=== PATIENT | male | born 1950 | race Caucasian/White ===

== ENCOUNTER 2016-07-16 09:43 | Inpatient (IN) ==
[2016-07-16] MEDS ORDERED: VANCOMYCIN IV PER PHARMACY MISC SCH (13:15)
[2016-07-16 13:57] LABS: MANUAL DIFF NEEDED? NO
[2016-07-16 14:01] LABS: BASO% 0.7 % (0.0-0.8); EOS# 0.13 X1000 (0.0-0.7); EOS% 2.2 % (0.0-10.0); HEMATOCRIT 39.3 % (42.0-52.0); HEMOGLOBIN 13.3 g/dL (14.0-18.0); LYMPH# 1.21 X1000 (1.2-3.4); LYMPH% 20.9 % (20.5-51.1); MCH 31.1 PG (27-31); MCHC 33.8 g/dL (33-37); MONO# 0.43 X1000 (0.11-0.59); MONO% 7.4 % (1.7-9.3); MPV 11.4 FL (7.4-10.4); NEUT% 68.8 % (42.2-75.2); PLT 132 X1000 (130-400); RBC 4.27 XMIL (4.7-6.1)
[2016-07-16 14:20] LABS: AGAP 12; BUN 15 mg/dL (8-22); CALCIUM 9.1 mg/dL (8.8-10.2); CHLORIDE 97 mmol/L (98-107); COSMO 269; SODIUM 133 mmol/L (136-145); TCO2 24 mmol/L (25-35)
[2016-07-16 15:07] LABS: SED RATE 58 mm/hr (0-15)
[2016-07-16] MEDS: VANCOMYCIN 1.75 GM in NS 250 ML IV SCH (16:38)
[2016-07-16] MEDS ORDERED: FLEXERIL PO PRN (18:46)
[2016-07-16] MEDS: ZOCOR PO SCH (20:29)
[2016-07-16] MEDS: GLUCOPHAGE PO SCH (20:29)
[2016-07-16] MEDS: PROTONIX IV SCH (20:30)
[2016-07-16] MEDS: NORVASC PO SCH (20:30)
[2016-07-16] MEDS: SODIUM CHLORIDE 0.9% INJ SCH (20:30)
[2016-07-16] MEDS: LOVENOX SUBQ SCH ×3 (20:30→20:39)
[2016-07-16] MEDS: NS 1,000 ML IV SCH (20:30)
[2016-07-16] MEDS: HUMALOG SUBQ SCH (20:39)
--- NOTE | 2016-07-16 21:03 | HISTORY AND PHYSICAL ---
CHIEF COMPLAINT: History of fall, sustained injury to the left leg. HISTORY OF PRESENT ILLNESS: The patient was seen by Dr. Giron. He developed extensive redness, cellulitis and fluid collection just below the medial left knee. He had bilateral knee replacement with prosthesis by Dr. Hernandez. He also had impetigos lesion on the fluid collection, worried about impending abscess. He was given Bactrim and doxycycline and fails to improve. The redness was going above the knee and extremely swollen and tender. As a result, he has been hospitalized with cellulitis with impending abscess on the medial side of the left knee given the context of prosthetic joints. As a result, he was hospitalized with IV vancomycin and is allergic to penicillin. Dr. Giron was consulted also. He is also diabetic with hyponatremia and needs IV fluids to control the sugar. For all these reasons, he needs to be in acute care hospital setting. PAST MEDICAL HISTORY: Kidney stones. Metabolic syndrome, hypertension, fatty liver, hyperlipidemia, type 2 diabetes, osteoarthritis, thrombocytopenia. PAST SURGICAL HISTORY: Bilateral knee arthroplasty. Bilateral cataract surgery. MEDICINES: Aspirin 80 mg daily, Flexeril 10 once daily, metformin 500 p.o. b.i.d., lisinopril 40 mg daily, Norvasc 10 mg daily, Zocor 40 daily. ALLERGIES: Penicillin. SOCIAL HISTORY: Lives in [place] and working in [email or web address]. No tobacco. No alcohol abuse. . One daughter. FAMILY HISTORY: Father of heart failure at 60. Mom is 88 years old, CHF. Tetanus 2009. Last prostate and PSA October 2015. Colonoscopy [address] Arvizu. REVIEW OF SYSTEMS: HEENT: No headache. No dizziness. No earache. No sore throat. Neck: No goiter. No lymphadenopathy. No bruit. Cardiopulmonary: No chest pain, shortness of breath, PND, orthopnea. GI: No nausea, vomiting, abdominal pain. : No history of hesitancy, frequency. Left leg swelling, redness with a fluid collection just below the knee. Neurologic: No focal symptoms or weakness or seizures. PHYSICAL EXAMINATION: VITAL SIGNS: Afebrile, 6 feet 299 pounds, hemodynamics were stable. HEENT: Within normal limits. NECK: Supple. No lymphadenopathy. No goiter. JVD is normal. CHEST: Bilateral air entry. No rales, no wheezing. HEART: Sounds are regular. ABDOMEN: Belly is soft, nontender. Good bowel sounds. No masses palpable. No signs of peritonitis. RECTAL: Deferred. EXTREMITIES: Left leg is swollen obviously with diffuse redness starting from the ankle all the way up with fluid collection, impending abscess on the medial of left knee. No obvious focal deficits. INVESTIGATIONS: CBC: White cell count 5.7, hematocrit 39, platelets 132,000. Sodium 133. Potassium 5. BUN and creatinine normal. Glucose 139. ESR 58. ASSESSMENT AND PLAN: 1. A 66-year-old white gentleman with history of diabetes, obesity, bilateral knee joint replacement. Admitted to the hospital with cellulitis, not able to improve with outpatient medical management. Allergic to penicillin. Plan is IV vancomycin. 2. Dehydration, hyponatremia. IV fluids. 3. Impending abscess. Fluid collection. Dr. Giron consult for possible incision and drainage. DVT prophylaxis with Lovenox. Gastrointestinal prophylaxis with IV Protonix. 4. Probiotics. 5. Type 2 diabetes on metformin. Check the A1c and follow up on sliding scale with insulin coverage. 6. Hyperlipidemia, on Zocor. Discussed with the patient. We will follow up. cc: Kirby Gao MD
[2016-07-17] MEDS: VANCOMYCIN 1.75 GM in NS 250 ML IV SCH ×2 (04:49→15:39)
--- NOTE | 2016-07-17 05:16 | EKG Report ---
Test Performed on : 07/16/2016 10:24:03 PM Test Reason : tingling hands/face Blood Pressure : / mmHG Vent. Rate : 072 BPM Atrial Rate : 072 BPM P-R Int : 216 ms QRS Dur : 120 ms QT Int : 434 ms P-R-T Axes : 053 030 041 degrees QTc Int : 475 ms Sinus rhythm. with 1st degree AV block. Nonspecific intraventricular conduction delay Borderline ECG When compared with ECG of 27-SEP-2010 10:46, MS interval has increased QRS duration has increased QT has lengthened Confirmed by Nate SANCHEZ, Yahir Parnell ([id number]) on 07/20/2016 12:37:41 PM
[2016-07-17] MEDS: HUMALOG SUBQ SCH ×4 (06:04→21:16)
[2016-07-17 06:42] LABS: MANUAL DIFF NEEDED? NO
[2016-07-17 06:55] LABS: BASO% 0.4 % (0.0-0.8); EOS# 0.18 X1000 (0.0-0.7); EOS% 3.7 % (0.0-10.0); HEMATOCRIT 39.8 % (42.0-52.0); HEMOGLOBIN 13.4 g/dL (14.0-18.0); LYMPH# 1.39 X1000 (1.2-3.4); LYMPH% 28.5 % (20.5-51.1); MCH 31.1 PG (27-31); MCHC 33.7 g/dL (33-37); MCV 92.3 FL (81-99); MONO# 0.42 X1000 (0.11-0.59); MONO% 8.6 % (1.7-9.3); MPV 11.5 FL (7.4-10.4); NEUT% 58.8 % (42.2-75.2); PLT 125 X1000 (130-400); RBC 4.31 XMIL (4.7-6.1)
[2016-07-17 07:11] LABS: AGAP 16; BUN 12 mg/dL (8-22); CALCIUM 8.7 mg/dL (8.8-10.2); CHLORIDE 100 mmol/L (98-107); COSMO 278; POTASSIUM 4.5 mmol/L (3.5-5.1); SODIUM 139 mmol/L (136-145); TCO2 23 mmol/L (25-35)
[2016-07-17 07:15] LABS: HEMOGLOBIN A1C 7.5 % (4.8-6.0)
--- NOTE | 2016-07-17 08:57 | PROGRESS NOTE ---
DATE: 07/17/2016 SUBJECTIVE: The patient was seen by Dr. Montoya. He is developing slight redness and numbness of the face with the IV vancomycin. Now, he has developed soft fluctuant swelling medial to the left knee. No fever. The rest of review of systems is normal. OBJECTIVE: Vital Signs: Afebrile. Vitals are stable. I/O -435. HEENT: Within normal limits. Neck: Supple. No lymphadenopathy. Chest: Clear. Heart: Sounds are regular. Abdomen: Belly is soft, nontender. Good bowel sounds. Extremities: Left knee with soft fluctuant impending abscess on the medial below left knee. Decreased redness. INVESTIGATIONS: White cell count 4.8, hematocrit 39, platelets 125,000. SMA 7: Sodium 139, potassium 4.5, chloride 100, BUN 12, creatinine 0.8, glucose 105, A1c 7.5. ASSESSMENT AND PLAN: 1. Left leg cellulitis is slowly improving with IV vancomycin. 2. Left medial knee impending abscess. Incision and drainage by Dr. Montoya today. 3. Diabetes. Well controlled, A1c 7.5. 4. Thrombocytopenia, stable. 5. Red man syndrome with IV vancomycin. We will discuss with nurses to infused very slowly and give Benadryl prior to the infusion. Continue present medical therapy. LEVEL OF DOCUMENTATION: Twenty-five minutes. cc: Kirby Gao MD
[2016-07-17] MEDS ORDERED: CLINORIL PO SCH (09:00)
[2016-07-17] MEDS: GLUCOPHAGE PO SCH ×2 (09:16→21:15)
[2016-07-17] MEDS: PRINIVIL PO SCH (09:16)
[2016-07-17] MEDS: CULTURELLE PO SCH (09:16)
[2016-07-17] MEDS: NS 1,000 ML IV SCH ×2 (11:19→21:16)
[2016-07-17] MEDS ORDERED: NEOSPORIN G.U. IRRIGANT ONE ×2 (17:20→18:07)
[2016-07-17] MEDS ORDERED: FENTANYL ONE (18:17)
[2016-07-17] MEDS ORDERED: DIPRIVAN 1% ONE (18:18)
[2016-07-17] MEDS ORDERED: MORPHINE IV PRN (19:00)
[2016-07-17] MEDS: OXY IR PO PRN (20:15)
--- NOTE | 2016-07-17 20:24 | OPERATIVE NOTE ---
PROCEDURE DATE: 07/17/2016 PREOPERATIVE DIAGNOSIS: Infected hematoma/abscess left knee with cellulitis. POSTOPERATIVE DIAGNOSIS: Infected hematoma/abscess left knee with cellulitis. PROCEDURE: Incision and drainage abscess left knee. SURGEON: Erick Montoya MD. ANESTHESIA: General. IV FLUIDS: 700 mL lactated Ringer's. ESTIMATED BLOOD LOSS: 5 mL. TOURNIQUET TIME: 27 minutes at 350 mmHg. COMPLICATIONS: None. INDICATION: The patient is a pleasant, 66-year-old male who is status post injury to his knee approximately a week and half or so ago. He presented to the office. Underwent evaluation last week and underwent evaluation by Dr. Giron and was placed on p.o. Bactrim and doxycycline and continued with symptoms. He was admitted to the hospital per Dr. Gao and Orthopedic consultation was requested. Given the patient's continued swelling and failure to resolve with p.o. antibiotics, recommendation to proceed with incision and drainage was offered. Risks, benefits of surgery were explained, including the risks of anesthesia, , bleeding, infection, failure to relieve pain, postoperative stiffness, nerve injury, blood clots and other imponderables. All questions were answered and the patient and family wished to proceed with surgery. DETAILS OF OPERATION: The patient was taken to the operating room and underwent general anesthesia. After adequate anesthesia was obtained, patient's left lower extremity was subsequently prepped and draped in usual sterile fashion. Attention was turned to the superolateral aspect of the knee well away from the medial proximal tibia/knee infected hematoma and under sterile technique, an aspiration of the knee was performed. Attention then turned to the medial aspect of the knee. The knee was elevated and the tourniquet was inflated to 350 mmHg. A few drops of blood-tinged serous fluid. We will obtain cultures. After this had been performed, attention then turned to the infected hematoma/abscess along the medial aspect of the knee. A longitudinal incision made along the firm mass. There was some purulent fluid expressed. Cultures were obtained of this as well. The debridement and excision of the necrotic tissue was conducted. After adequate elevation circumferentially of the wound, there appeared to be no further tracking. There is no evidence of tracking to the joint. After excising and debriding the necrotic tissue, copious irrigation was performed with 6000 mL of antibiotic pulsatile lavage. After this had been performed, the wound was packed with iodoform and loosely closed with 2-0 Prolene leaving the iodoform exiting the central portion of the incision. Sterile 4 x 4, ABD pad, [place] and a Webril, followed by Hemant wrap was applied to the right lower extremity. The tourniquet was deflated after 26 minutes at 350 mmHg. The patient tolerated the procedure well and there were no complications. He was transferred to the recovery room in stable condition. cc: MD Kirby Ackerman MD MTDD
[2016-07-17] MEDS: NORVASC PO SCH (21:15)
[2016-07-17] MEDS: LOVENOX SUBQ SCH ×2 (21:16→21:19)
[2016-07-17] MEDS: ZOCOR PO SCH (21:16)
[2016-07-17] MEDS: PROTONIX IV SCH (21:16)
[2016-07-17] MEDS: SODIUM CHLORIDE 0.9% INJ SCH (21:16)
[2016-07-18] MEDS: OXY IR PO PRN ×2 (00:17→04:11)
[2016-07-18] MEDS: NS 1,000 ML IV SCH ×2 (04:02→10:06)
[2016-07-18] MEDS: VANCOMYCIN 1.75 GM in NS 250 ML IV SCH (04:04)
[2016-07-18] MEDS: HUMALOG SUBQ SCH ×3 (06:16→16:33)
[2016-07-18] MEDS ORDERED: ROBINUL ONE (08:20)
[2016-07-18] MEDS ORDERED: XYLOCAINE-MPF 2% ONE (08:20)
[2016-07-18] MEDS ORDERED: LR 1,000 ML ONE (08:20)
[2016-07-18] MEDS ORDERED: ZOFRAN ONE (08:20)
[2016-07-18] MEDS ORDERED: BENADRYL PO PRN (08:22)
[2016-07-18] MEDS: NORCO-5 PO PRN ×3 (08:29→21:34)
--- NOTE | 2016-07-18 09:33 | PROGRESS NOTE ---
DATE: 07/18/2016 SUBJECTIVE: Interval history was reviewed. Patient is refusing Lovenox shots. Complains of itching from the morphine and vancomycin. Dr. Montoya consulted and procedure is appreciated. The findings were noted. Incision and drainage done. Drained quite a bit of hematoma and abscess. The wound was packed with iodoform gauze pack. The whole leg was wrapped up with Hemant bandage. Denies of any chest pain, shortness of breath other than itching. OBJECTIVE: Vital Signs: On examination, he is afebrile. Vitals are stable. HEENT: Within normal limits. He had a sebaceous cyst below the suprasternal notch. Chest: Clear. Heart: Sounds are regular. Abdomen: Belly is soft, nontender. Good bowel sounds. Extremities: Left leg is wrapped up with an Hemant bandage. Wound cultures are pending. The A1c 7.5. Blood cultures were negative. ASSESSMENT AND PLAN: 1. Left knee abscess, incision and drainage. Continue local wound care. Follow up on culture and sensitivity. In the meantime, IV vancomycin. 2. Diabetes is controlled. 3. Deep vein thrombosis prophylaxis. Platelets were normal. Discontinue Lovenox. Change to Xarelto 10 mg daily. Keep him out of the bed. Continue IV antibiotics for the weekend. Hopefully he will be discharged home on Thursday. LEVEL OF DOCUMENTATION: Twenty-five minutes. cc: Kirby Gao MD
[2016-07-18] MEDS: GLUCOPHAGE PO SCH ×2 (10:06→21:34)
[2016-07-18] MEDS: PRINIVIL PO SCH (10:06)
[2016-07-18] MEDS: CULTURELLE PO SCH (10:06)
--- NOTE | 2016-07-18 17:19 | PROGRESS NOTE ---
DATE: 07/18/2016 SUBJECTIVE: The patient is a pleasant 66-year-old male who is 1 day status post I and D for abscess/infected hematoma of the left knee. He is currently resting comfortably. OBJECTIVE: On physical examination, the patient's dressing was removed. His wound looks good. There is small bloody drainage. Some of the packing was removed. It was redressed. His calf is soft. His intraoperative Gram stain revealed gram-positive cocci. LABORATORY DATA: His cultures are pending. IMPRESSION: Postoperative day #1 status post irrigation and debridement for infected hematoma. PLAN: At this point the patient will be maintained on IV vancomycin. We will await his culture results. All questions were answered. We will allow him to be weightbearing as tolerated on left lower extremity. cc: MD Kirby Ackerman MD
[2016-07-18] MEDS: VANCOMYCIN 2,000 MG in NS 500 ML IV SCH (17:21)
[2016-07-18] MEDS: PROTONIX IV SCH (21:34)
[2016-07-18] MEDS: ZOCOR PO SCH (21:34)
[2016-07-18] MEDS: SODIUM CHLORIDE 0.9% INJ SCH (21:34)
[2016-07-18] MEDS: NORVASC PO SCH (21:35)
[2016-07-19] MEDS: HUMALOG SUBQ SCH ×5 (02:29→23:55)
[2016-07-19] MEDS: VANCOMYCIN 2,000 MG in NS 500 ML IV SCH ×2 (06:17→16:59)
[2016-07-19] MEDS: NORCO-5 PO PRN ×2 (06:18→19:15)
[2016-07-19] MEDS: XARELTO PO SCH (06:18)
[2016-07-19] MEDS: PRINIVIL PO SCH (08:55)
[2016-07-19] MEDS: GLUCOPHAGE PO SCH ×2 (08:56→20:28)
[2016-07-19] MEDS: CULTURELLE PO SCH (08:56)
--- NOTE | 2016-07-19 11:22 | PROGRESS NOTE ---
DATE: 07/19/2016 Mr. Haddad is receiving postop care after I and D of infected hematoma. He is afebrile with stable vital signs. There is some drainage on the bandage but, overall, no active drainage or increasing drainage. He has good range of motion of the knee. He states he is feeling better. We will continue IV antibiotics. We will consider changing the bandage tomorrow or Thursday. cc: MD Kirby Glynn MD
--- NOTE | 2016-07-19 13:46 | PROGRESS NOTE ---
DATE: 07/19/2016 SUBJECTIVE: Mr. Haddad has severe cellulitis in the left knee area. He has Gram-positive cocci isolated in the left knee and he is feeling better. He is on IV vancomycin. Overall condition is improving. He has diabetes and he has insulin coverage. We will continue with the current management. His vital signs are stable. -4 cc: MD Kirby Lake MD
[2016-07-19] MEDS: NORVASC PO SCH (20:28)
[2016-07-19] MEDS: ZOCOR PO SCH (20:28)
[2016-07-19] MEDS: SODIUM CHLORIDE 0.9% INJ SCH (20:28)
[2016-07-19] MEDS: PROTONIX IV SCH (20:28)
[2016-07-20] MEDS: VANCOMYCIN 2,000 MG in NS 500 ML IV SCH ×2 (04:44→17:35)
[2016-07-20] MEDS: XARELTO PO SCH (05:40)
[2016-07-20] MEDS: HUMALOG SUBQ SCH ×4 (06:40→21:27)
[2016-07-20] MEDS: PRINIVIL PO SCH (09:30)
[2016-07-20] MEDS: CULTURELLE PO SCH (09:30)
[2016-07-20] MEDS: GLUCOPHAGE PO SCH ×2 (09:30→21:26)
--- NOTE | 2016-07-20 11:49 | PROGRESS NOTE ---
DATE: 07/20/2016 SUBJECTIVE: Mr. Haddad was seen for followup care status post drainage of infected hematoma. He remains afebrile with stable vital signs. He reports decreasing pain and tenderness. States the leg is feeling better. OBJECTIVE: Examination reveals the incision to be clean and dry. ASSESSMENT AND PLAN: We have changed the bandage today. He will continue with IV antibiotics. Dr. Montoya will be back to see him tomorrow. cc: MD Kirby Glynn MD
[2016-07-20] MEDS: NORCO-5 PO PRN (13:51)
--- NOTE | 2016-07-20 17:18 | PROGRESS NOTE ---
DATE: 07/20/2016 The patient says he needs a dressing done. He is seen by Dr. Sotelo. He has a moderate size Vancomycin. His IV vancomycin was given. He has some cellulitis on the leg also. -8 cc: MD Kirby Lake MD
[2016-07-20] MEDS: NORVASC PO SCH (21:26)
[2016-07-20] MEDS: PROTONIX IV SCH (21:26)
[2016-07-20] MEDS: SODIUM CHLORIDE 0.9% INJ SCH (21:26)
[2016-07-20] MEDS: ZOCOR PO SCH (21:26)
[2016-07-21] MEDS: VANCOMYCIN 2,000 MG in NS 500 ML IV SCH ×2 (05:11→17:18)
[2016-07-21] MEDS: XARELTO PO SCH (05:44)
[2016-07-21] MEDS: HUMALOG SUBQ SCH ×4 (06:35→21:15)
--- NOTE | 2016-07-21 06:44 | PROGRESS NOTE ---
DATE: 07/21/2016 SUBJECTIVE: Patient pleasant 66-year-old male, who is four days status post I D for infected hematoma of his left knee. His intraoperative cultures were negative. He has been maintained on IV vancomycin and he is currently resting comfortably. Patient has been afebrile and his pain has improved. OBJECTIVE: On physical exam, patient's left lower extremity dressing was changed. His packing was removed. Patient did have expected drainage from the wound. Some mild erythema lower extremity. His compartments were soft. His culture revealed MRSA. IMPRESSION: Postoperative day #4 status post I D infected hematoma left knee. PLAN: At this point, the patient will continue with a daily dressing change. He is stable from an orthopedic standpoint. The culture revealed sensitivity to doxycycline and will plan on placing him on this at the time of discharge. We will await Dr. Gao's recommendation. cc: MD Kirby Ackerman MD [facility]
[2016-07-21] MEDS: NORCO-5 PO PRN ×2 (07:12→14:56)
[2016-07-21] MEDS: GLUCOPHAGE PO SCH ×2 (10:06→21:15)
[2016-07-21] MEDS: PRINIVIL PO SCH (10:06)
[2016-07-21] MEDS: CULTURELLE PO SCH (10:07)
[2016-07-21] MEDS: MYLICON PO PRN (18:21)
--- NOTE | 2016-07-21 20:23 | PROGRESS NOTE ---
DATE: 07/21/2016 Interval history was reviewed. LEVEL OF DOCUMENTATION: 35 minutes. SUBJECTIVE: Detailed events were noted over the weekend. Apparently, wound pack was removed. Quit a bit of swelling, redness is not going down. Dr. Montoya removed the pack. Wound cultures grew MRSA. It has been sensitive to Bactrim and doxycycline. He is on IV vancomycin. REVIEW OF SYSTEMS: General: No side effects on vancomycin. Cardiopulmonary: No chest pain, shortness of breath, PND, orthopnea. GI: No nausea, vomiting, abdominal pain. Right leg: Is still swollen and painful. PAST MEDICAL HISTORY/MEDICINES: reviewed. OBJECTIVE: Vital Signs: Afebrile, stable, pulse oximetry 97%. HEENT: Within normal limits. Neck: Supple. No lymphadenopathy. No goiter. Chest: Clear to auscultation. Heart: Sounds are regular. Abdomen: Belly is soft, nontender. Good bowel sounds. No masses palpable. Extremities: Left leg, wound was examined twice. I did examine in the morning with wrap, again in the afternoon. He had a big incision on the medial side of the left knee with 6 stitches placed. The pack was removed. Still draining serous fluid. Fluid collection is less and no fluctuations noted. Still red and tender. Quite a bit of swelling in the left leg. Neurologic: Nonfocal. DIAGNOSTICS: Wound cultures MRSA. Blood cultures were negative. No labs were done. Blood sugars running within normal limits. ASSESSMENT AND PLAN: 1. Left knee infected hematoma due to methicillin-resistant Staphylococcus aureus. Continue IV vancomycin. 2. Still cellulitis and redness. Elevation. Venous Dopplers. He is on Xarelto. 3. Type 2 diabetes. Well controlled. 4. Hypertension. Lisinopril and amlodipine. 5. Thrombocytopenia. Stable. PLAN OF CARE: Repeat the complete blood count in the morning. Venous Dopplers. Discussed with the Dr. Montoya on the telephone. Since he has bilateral knee replacements, it is prudent to stay a few more days on IV antibiotics. Options are discussed with the patient, home IV antibiotics versus p.o. antibiotics. We will continue the wound dressing twice a day. Patient did examine in the morning as well as in the afternoon. Still swelling is slowly improving. Continue elevation. LEVEL OF DOCUMENTATION: 35 minutes. cc: Kirby Gao MD
[2016-07-21] MEDS ORDERED: PRILOSEC PO SCH (21:00)
[2016-07-21] MEDS: NORVASC PO SCH (21:15)
[2016-07-21] MEDS: ZOCOR PO SCH (21:15)
[2016-07-22] MEDS: VANCOMYCIN 2,000 MG in NS 500 ML IV SCH (04:54)
[2016-07-22] MEDS: XARELTO PO SCH (06:00)
[2016-07-22] MEDS: HUMALOG SUBQ SCH (06:01)
[2016-07-22 06:28] LABS: MANUAL DIFF NEEDED? NO
[2016-07-22 06:39] LABS: BASO% 0.5 % (0.0-0.8); EOS# 0.12 X1000 (0.0-0.7); EOS% 3.1 % (0.0-10.0); HEMATOCRIT 38.8 % (42.0-52.0); HEMOGLOBIN 13.1 g/dL (14.0-18.0); LYMPH# 0.85 X1000 (1.2-3.4); LYMPH% 21.9 % (20.5-51.1); MCH 31.3 PG (27-31); MCHC 33.8 g/dL (33-37); MCV 92.6 FL (81-99); MONO% 10.3 % (1.7-9.3); MPV 11.7 FL (7.4-10.4); NEUT% 64.2 % (42.2-75.2); PLT 114 X1000 (130-400); RBC 4.19 XMIL (4.7-6.1)
[2016-07-22 07:00] LABS: AGAP 14; BUN 4 mg/dL (8-22); CALCIUM 8.3 mg/dL (8.8-10.2); CHLORIDE 98 mmol/L (98-107); COSMO 273; POTASSIUM 3.6 mmol/L (3.5-5.1); SODIUM 138 mmol/L (136-145); TCO2 26 mmol/L (25-35)
[2016-07-22 07:37] VITALS: BP 122/55
[2016-07-22] MEDS: GLUCOPHAGE PO SCH (07:44)
[2016-07-22] MEDS: CULTURELLE PO SCH (07:44)
[2016-07-22] MEDS: PRINIVIL PO SCH (07:44)
[2016-07-22] MEDS: MYLICON PO PRN (07:48)
[2016-07-22] MEDS ORDERED: HYDROGEN PEROXIDE SOLUTION TOP SCH (09:00)
--- NOTE | 2016-07-22 18:20 | DISCHARGE SUMMARY ---
ADMISSION DATE: 07/16/2016 DISCHARGE DATE: 07/22/2016 DISCHARGING DIAGNOSIS: Left leg cellulitis with infected hematoma on the medial side of left knee. SECONDARY DIAGNOSES: 1. Chronic idiopathic thrombocytopenic purpura, stable. 2. History of kidney stones. 3. Type 2 diabetes. 4. Metabolic syndrome. 5. Hypertension. 6. Fatty liver. 7. Osteoarthritis. 8. Bilateral knee arthroplasty. 9. Sebaceous cyst over the sternum. CONSULTANTS: Dr. Montoya. PROCEDURES: I and D on the left medial knee, drained copious pus and blood, followed by stitches and grew MRSA. BRIEF HISTORY: Please see the H and P that was done on 07/16/2016. In brief, he is a 66-year- old, white gentleman who was admitted to the hospital after failure of outpatient treatment after he fell, sustaining injury to the left leg. It was diffusely red and he developed infected hematoma on the medial left knee. HOSPITAL COURSE: 1. Venous Doppler was negative for acute DVT. 2. He was started on IV vancomycin, briefly developed red man syndrome. 3. Follow up, there were no signs of sepsis. 4. Ortho consult was obtained. Performed I and D. Drained copious infected pus and the cultures grew MRSA, sensitive to vancomycin, doxycycline and Bactrim. Redness slowly improved. The wound pack was taken out. Patient's family was given instructions with a saline gauze along with local antibiotic cream. The patient was less edematous, less redness. He was also given IV fluids for hyponatremia. LABORATORIES: CBC: White cell count 3.8, hematocrit 38, platelets 114. SMA-7: Sodium 138, potassium 3.6, chloride 98, BUN 14, creatinine 0.7, glucose 112. A1c was 7.5, and blood cultures were negative. Wound cultures MRSA. DISCHARGE INSTRUCTIONS: Local wound care. Follow up with Dr. Montoya on , as well as in my office next week. Norvasc 10 mg daily, metformin 500 p.o. b.i.d., Zocor 40 daily, lisinopril 40 mg daily, sulindac 150 daily, Flexeril 5 mg as needed, doxycycline 100 p.o. b.i.d. for 2 weeks and Bactroban ointment as directed. cc: MD Erick Saavedra MD
--- NOTE | 2016-07-23 20:09 | Extremity Venous Study ---
PROCEDURE NAME: Venous U/S Left Leg - 07/21/2016 TEST: Left lower extremity venous duplex study. REFERRING PHYSICIAN: Chang Gao MD READING PHYSICIAN: Jakob Quintero MD NETWORK OPERATIONS LEAD: Paul. INDICATION: Left leg pain and swelling. FINDINGS: The deep and superficial veins of the left lower extremity were imaged throughout their course. They are compressible and patent and without thrombus. Some of the views were limited secondary to edema and dressings on the leg. INTERPRETATION: No evidence of deep or superficial venous thrombosis in the left lower extremity in this limited study. cc: MD Kirby Bennett MD
== END 2016-07-22 10:15 | disposition home or self-care (01) ==
LOC: DIRADM 09:43 → 3N 10:45
PROVIDERS: ADMIT Internal Medicine; ATTEND Internal Medicine

== ENCOUNTER 2018-11-16 13:19 | Inpatient (IN) ==
[2018-11-16] MEDS ORDERED: ZOFRAN IV PRN (14:11)
[2018-11-16] MEDS ORDERED: SODIUM CHLORIDE 0.9% INJ SCH (14:15)
[2018-11-16] MEDS: ZOSYN 3.375 GM in NS 50 ML IV SCH ×3 (18:00→23:37)
[2018-11-16] MEDS: NS 1,000 ML IV SCH (18:01)
[2018-11-16] MEDS: HUMULIN R SUBQ SCH ×2 (18:25→20:33)
[2018-11-16] MEDS: PROTONIX IV SCH (18:27)
[2018-11-16 19:04] LABS: URINE SOURCE CLEAN CATCH
[2018-11-16 19:14] LABS: BILIRUBIN URINE NEGATIVE (NEGATIVE); BLOOD URINE MODERATE (NEGATIVE); COLOR YELLOW; GLUCOSE URINE NEGATIVE (NEGATIVE); KETONE URINE TRACE mg/dL (NEGATIVE); LEUKOCYTES URINE TRACE (NEGATIVE); NITRITE URINE NEGATIVE (NEGATIVE); PROTEIN URINE 30 mg/dL (NEGATIVE); SP GRAVITY URINE 1.027; TURBIDITY URINE CLEAR (CLEAR); UROBILINOGEN URINE NORMAL (NORMAL)
[2018-11-16 19:17] LABS: UR EPITHELIAL CELLS <10 /HPF (<10); URINE BACTERIA NEGATIVE /HPF; URINE RBC <10 /HPF (<10); URINE WBC <10 /HPF (<10)
[2018-11-16 19:37] LABS: URINE CRYSTALS CA OXALATE PRESENT
[2018-11-16 19:48] LABS: BASO# 0.03 X1000 (0.0-0.2); BASO% 0.2 % (0.0-0.8); HEMOGLOBIN 13.7 g/dL (14.0-18.0); IMM GRAN# 0.18 X1000 (0.0-0.04); IMM GRAN% 1.5 % (0.0-0.5); LYMPH# 0.93 X1000 (1.2-3.4); LYMPH% 7.6 % (20.5-51.1); MCH 29.8 PG (27-31); MCHC 33.4 g/dL (33-37); MCV 89.1 FL (81-99); MONO# 0.58 X1000 (0.11-0.59); MONO% 4.7 % (1.7-9.3); NEUT# 10.51 X1000 (1.4-6.5); PLT 69 X1000 (130-400); RDW 13.4 % (11.5-14.5); WBC 12.23 X1000 (4.8-10.8)
[2018-11-16 19:51] LABS: INR 2.03; PROTIME 23.5 Seconds (11.0-16.0)
[2018-11-16 19:52] LABS: PTT 43.3 Seconds (22.3-41.8)
[2018-11-16 19:57] LABS: AGAP 14; ALBUMIN 3.4 g/dL (3.5-5.0); ALKALINE PHOSPHATASE 47 U/L (32-122); BUN 29 mg/dL (8-22); CALCIUM 8.3 mg/dL (8.8-10.2); CHLORIDE 98 mmol/L (98-107); COSMO 276; CREATININE 1.1 mg/dL (0.7-1.2); ESTIMATED GFR > 60; GLUCOSE 102 mg/dL (70-104); GOT 53 U/L (10-34); GPT 29 U/L (10-44); POTASSIUM 4.1 mmol/L (3.5-5.1); SODIUM 135 mmol/L (136-145); TCO2 23 mmol/L (25-35); TOTAL BILIRUBIN 1.97 mg/dL (0.20-1.00); TOTAL PROTEIN 6.9 g/dL (6.3-8.3)
[2018-11-16 19:59] LABS: CK PROFILE 311 U/L (24-204)
[2018-11-16 20:17] LABS: BANDS 8 % (0-1); LYMPHS 6 % (21-51); MONO 6 % (1-9); SEGS 80 % (42-75)
[2018-11-16 20:22] LABS: CK INDEX 0.6 (0.0-2.5); CK-MB 1.93 ng/mL (0.0-5.0)
[2018-11-17 05:25] LABS: BASO# 0.02 X1000 (0.0-0.2); BASO% 0.2 % (0.0-0.8); HEMATOCRIT 40.3 % (42.0-52.0); HEMOGLOBIN 13.5 g/dL (14.0-18.0); IMM GRAN# 0.07 X1000 (0.0-0.04); IMM GRAN% 0.6 % (0.0-0.5); LYMPH# 0.91 X1000 (1.2-3.4); LYMPH% 8.3 % (20.5-51.1); MCHC 33.5 g/dL (33-37); MCV 89.6 FL (81-99); MONO# 0.53 X1000 (0.11-0.59); MONO% 4.8 % (1.7-9.3); MPV 12.5 FL (7.4-10.4); NEUT# 9.43 X1000 (1.4-6.5); NEUT% 86.1 % (42.2-75.2); PLT 65 X1000 (130-400); RDW 13.3 % (11.5-14.5); WBC 10.96 X1000 (4.8-10.8)
[2018-11-17] MEDS: ZOSYN 3.375 GM in NS 50 ML IV SCH ×4 (05:38→20:05)
[2018-11-17 05:41] LABS: HEMOGLOBIN A1C 7.6 % (4.8-6.0)
[2018-11-17 05:50] LABS: AGAP 13; BUN 24 mg/dL (8-22); CALCIUM 8.5 mg/dL (8.8-10.2); CHLORIDE 98 mmol/L (98-107); COSMO 274; CREATININE 0.9 mg/dL (0.7-1.2); ESTIMATED GFR > 60; GLUCOSE 102 mg/dL (70-104); POTASSIUM 4.1 mmol/L (3.5-5.1); SODIUM 135 mmol/L (136-145); TCO2 24 mmol/L (25-35)
[2018-11-17 05:52] LABS: BANDS 2 % (0-1); MONO 6 % (1-9); SEGS 92 % (42-75)
[2018-11-17] MEDS: HUMULIN R SUBQ SCH ×4 (06:00→20:49)
[2018-11-17] MEDS: NS 1,000 ML IV SCH ×2 (06:17→22:43)
[2018-11-17] MEDS: LOVENOX SUBQ SCH (08:58)
[2018-11-17] MEDS: PROTONIX IV SCH (13:25)
[2018-11-18] MEDS: ZOSYN 3.375 GM in NS 50 ML IV SCH ×4 (01:41→20:01)
[2018-11-18 05:31] LABS: BASO# 0.05 X1000 (0.0-0.2); BASO% 0.6 % (0.0-0.8); EOS# 0.04 X1000 (0.0-0.7); EOS% 0.4 % (0.0-10.0); HEMATOCRIT 39.1 % (42.0-52.0); HEMOGLOBIN 12.9 g/dL (14.0-18.0); IMM GRAN# 0.05 X1000 (0.0-0.04); IMM GRAN% 0.6 % (0.0-0.5); LYMPH# 1.23 X1000 (1.2-3.4); LYMPH% 13.7 % (20.5-51.1); MCH 29.5 PG (27-31); MCV 89.3 FL (81-99); MONO# 0.86 X1000 (0.11-0.59); MONO% 9.6 % (1.7-9.3); MPV 12.5 FL (7.4-10.4); NEUT# 6.73 X1000 (1.4-6.5); NEUT% 75.1 % (42.2-75.2); PLT 70 X1000 (130-400); RBC 4.38 XMIL (4.7-6.1); RDW 13.1 % (11.5-14.5); WBC 8.96 X1000 (4.8-10.8)
[2018-11-18 05:46] LABS: AGAP 11; BUN 15 mg/dL (8-22); CALCIUM 8.1 mg/dL (8.8-10.2); CHLORIDE 102 mmol/L (98-107); COSMO 276; CREATININE 0.9 mg/dL (0.7-1.2); ESTIMATED GFR > 60; GLUCOSE 97 mg/dL (70-104); POTASSIUM 3.7 mmol/L (3.5-5.1); SODIUM 138 mmol/L (136-145); TCO2 25 mmol/L (25-35)
[2018-11-18] MEDS: HUMULIN R SUBQ SCH ×4 (06:10→21:27)
[2018-11-18] MEDS ORDERED: VANCOMYCIN IV PER PHARMACY MISC SCH (07:45)
[2018-11-18] MEDS: LOVENOX SUBQ SCH (09:26)
[2018-11-18] MEDS: NS 1,000 ML IV SCH ×2 (09:26→15:46)
[2018-11-18] MEDS: TYLENOL PO PRN ×3 (10:12→21:39)
[2018-11-18] MEDS: VANCOMYCIN 2 GM in NS 500 ML IV SCH ×2 (10:35→21:39)
[2018-11-18] MEDS: SODIUM CHLORIDE 0.9% INJ SCH (15:46)
[2018-11-18] MEDS: PROTONIX IV SCH (15:46)
[2018-11-19] MEDS: ZOSYN 3.375 GM in NS 50 ML IV SCH (02:16)
[2018-11-19 05:34] LABS: BASO# 0.07 X1000 (0.0-0.2); EOS# 0.12 X1000 (0.0-0.7); EOS% 1.7 % (0.0-10.0); HEMATOCRIT 38.3 % (42.0-52.0); HEMOGLOBIN 12.8 g/dL (14.0-18.0); IMM GRAN# 0.08 X1000 (0.0-0.04); IMM GRAN% 1.1 % (0.0-0.5); LYMPH# 1.08 X1000 (1.2-3.4); LYMPH% 15.1 % (20.5-51.1); MCH 29.7 PG (27-31); MCHC 33.4 g/dL (33-37); MCV 88.9 FL (81-99); MONO% 9.8 % (1.7-9.3); MPV 11.7 FL (7.4-10.4); NEUT# 5.09 X1000 (1.4-6.5); NEUT% 71.3 % (42.2-75.2); PLT 70 X1000 (130-400); RBC 4.31 XMIL (4.7-6.1); RDW 13.3 % (11.5-14.5); WBC 7.14 X1000 (4.8-10.8)
[2018-11-19 05:46] LABS: AGAP 10; BUN 10 mg/dL (8-22); CALCIUM 7.6 mg/dL (8.8-10.2); CHLORIDE 103 mmol/L (98-107); COSMO 272; CREATININE 0.7 mg/dL (0.7-1.2); ESTIMATED GFR > 60; GLUCOSE 85 mg/dL (70-104); POTASSIUM 3.5 mmol/L (3.5-5.1); SODIUM 137 mmol/L (136-145); TCO2 24 mmol/L (25-35)
[2018-11-19] MEDS: KEFZOL 2 GM/D5W 2 GM/50 ML IVPB IV SCH ×2 (07:57→16:06)
[2018-11-19] MEDS: HUMULIN R SUBQ SCH ×4 (08:01→20:27)
[2018-11-19] MEDS: LOVENOX SUBQ SCH (08:04)
[2018-11-19] MEDS: TYLENOL PO PRN (12:57)
[2018-11-19] MEDS: SODIUM CHLORIDE 0.9% INJ SCH (14:44)
[2018-11-19] MEDS: PROTONIX IV SCH (14:44)
[2018-11-20] MEDS: KEFZOL 2 GM/D5W 2 GM/50 ML IVPB IV SCH ×3 (00:20→17:10)
[2018-11-20] MEDS: TYLENOL PO PRN (00:27)
[2018-11-20] MEDS: HUMULIN R SUBQ SCH ×4 (06:26→20:04)
[2018-11-20] MEDS: LOVENOX SUBQ SCH (09:05)
[2018-11-20] MEDS: PROTONIX IV SCH (13:42)
[2018-11-21] MEDS: KEFZOL 2 GM/D5W 2 GM/50 ML IVPB IV SCH ×3 (00:55→15:46)
[2018-11-21] MEDS: HUMULIN R SUBQ SCH ×3 (06:11→16:15)
[2018-11-21] MEDS: LOVENOX SUBQ SCH (08:13)
[2018-11-21] MEDS ORDERED: EUCERIN LOTION TOP ONE (10:28)
[2018-11-21] MEDS: PROTONIX IV SCH (14:13)
[2018-11-22] MEDS: KEFZOL 2 GM/D5W 2 GM/50 ML IVPB IV SCH ×3 (01:19→16:34)
[2018-11-22] MEDS: HUMULIN R SUBQ SCH ×3 (02:57→20:17)
[2018-11-22 05:44] LABS: BASO# 0.02 X1000 (0.0-0.2); BASO% 0.4 % (0.0-0.8); EOS% 2.1 % (0.0-10.0); HEMATOCRIT 37.7 % (42.0-52.0); HEMOGLOBIN 12.4 g/dL (14.0-18.0); IMM GRAN# 0.05 X1000 (0.0-0.04); LYMPH# 0.82 X1000 (1.2-3.4); LYMPH% 16.8 % (20.5-51.1); MCH 29.4 PG (27-31); MCHC 32.9 g/dL (33-37); MCV 89.3 FL (81-99); MONO# 0.49 X1000 (0.11-0.59); MONO% 10.1 % (1.7-9.3); MPV 11.7 FL (7.4-10.4); NEUT# 3.39 X1000 (1.4-6.5); NEUT% 69.6 % (42.2-75.2); PLT 101 X1000 (130-400); RBC 4.22 XMIL (4.7-6.1); RDW 13.2 % (11.5-14.5); WBC 4.87 X1000 (4.8-10.8)
[2018-11-22 06:11] LABS: AGAP 8; BUN 5 mg/dL (8-22); CHLORIDE 100 mmol/L (98-107); COSMO 267; CREATININE 0.7 mg/dL (0.7-1.2); ESTIMATED GFR > 60; GLUCOSE 122 mg/dL (70-104); POTASSIUM 3.6 mmol/L (3.5-5.1); SODIUM 134 mmol/L (136-145); TCO2 26 mmol/L (25-35)
[2018-11-22] MEDS: TYLENOL PO PRN ×2 (08:46→18:47)
[2018-11-22] MEDS: LOVENOX SUBQ SCH (08:46)
[2018-11-22] MEDS: PROTONIX IV SCH (16:33)
[2018-11-22] MEDS: SODIUM CHLORIDE 0.9% INJ SCH (16:34)
[2018-11-23] MEDS: KEFZOL 2 GM/D5W 2 GM/50 ML IVPB IV SCH ×3 (00:42→16:21)
[2018-11-23] MEDS: HUMULIN R SUBQ SCH ×4 (06:19→21:27)
[2018-11-23] MEDS: LOVENOX SUBQ SCH (08:13)
[2018-11-23] MEDS: TYLENOL PO PRN ×2 (08:20→14:24)
[2018-11-23] MEDS: ULTRAM PO PRN (16:24)
[2018-11-23] MEDS: PROTONIX PO SCH (16:25)
[2018-11-24] MEDS: KEFZOL 2 GM/D5W 2 GM/50 ML IVPB IV SCH ×4 (00:45→23:40)
[2018-11-24] MEDS: ULTRAM PO PRN ×4 (06:05→22:02)
[2018-11-24] MEDS: HUMULIN R SUBQ SCH ×4 (06:07→23:14)
[2018-11-24] MEDS: LOVENOX SUBQ SCH (08:34)
[2018-11-24] MEDS: PROTONIX PO SCH (16:15)
[2018-11-25] MEDS: TYLENOL PO PRN ×4 (03:39→22:01)
[2018-11-25] MEDS ORDERED: LASIX IV ONE (06:00)
[2018-11-25] MEDS: HUMULIN R SUBQ SCH ×5 (06:39→21:14)
[2018-11-25] MEDS: LOVENOX SUBQ SCH (09:10)
[2018-11-25] MEDS: KEFLEX PO SCH ×3 (09:53→22:01)
[2018-11-25] MEDS: PROTONIX PO SCH (15:51)
[2018-11-26] MEDS: KEFLEX PO SCH (05:46)
[2018-11-26] MEDS ORDERED: LASIX IV ONE (06:00)
[2018-11-26] MEDS: HUMULIN R SUBQ SCH ×2 (06:00→13:00)
[2018-11-26] MEDS: LOVENOX SUBQ SCH (09:31)
[2018-11-26] MEDS: TYLENOL PO PRN (09:48)
[2018-11-26 12:01] VITALS: BP 156/72
== END 2018-11-26 14:00 | disposition home health service (06) ==
LOC: DIRADM 13:19 → EDIPHOLD 14:52 → 1N 17:33
PROVIDERS: ADMIT Internal Medicine; ATTEND Internal Medicine